=== PATIENT | female | born 1995 | race Caucasian/White ===

== ENCOUNTER 2017-01-10 20:21 | Outpatient (CLI) | payer MEDICAID ==
[2017-01-10 21:13] LABS: APPEARANCE,URINE SLIGHTLY-CLOUDY; BILIRUBIN,URINE NEGATIVE (NEGATIVE); GLUCOSE, URINE NEGATIVE (NEGATIVE); KETONES,URINE NEGATIVE (NEGATIVE); LEUKOCYTE ESTERASE,URINE SMALL (NEGATIVE); NITRITE,URINE NEGATIVE (NEGATIVE); PROTEIN,URINE NEGATIVE (NEGATIVE); URINE SPECIFIC GRAVITY 1.019
[2017-01-10 21:39] LABS: URINE BARBITURATES SCREEN NEGATIVE; URINE METHADONE SCREEN NEGATIVE; URINE PHENCYCLIDINE SCREEN NEGATIVE
[2017-01-10 21:49] LABS: URINE OPIATES LOW NEGATIVE
== END 2017-01-10 21:33 | disposition home or self-care (01) ==
LOC: LC 20:21
PROVIDERS: ATTEND Obstetrics & Gynecology
PROC: 4A1HXCZ Monitoring of Products of Conception, Cardiac Rate, External Approach (ICD-10-PCS; principal; 2017-01-10)
DX: O47.02 False labor before 37 completed weeks of gestation, second trimester (principal); O99.282 Endocrine, nutritional and metabolic diseases complicating pregnancy, second trimester; E86.0 Dehydration; Z3A.27 27 weeks gestation of pregnancy
CPT/HCPCS: 80307; 81001

== ENCOUNTER 2017-02-25 10:34 | Observation (INO) | payer MEDICAID ==
[2017-02-25 11:22] LABS: ABSOLUTE EOSINOPHILS # (AUTO) 0.1 10^3/uL (0.0-0.6); ABSOLUTE LYMPHOCYTES (AUTO) 1.8 10^3/uL (0.5-4.7); ABSOLUTE MONOCYTES (AUTO) 0.5 10^3/uL (0.1-1.4); ABSOLUTE NEUT (AUTO) 5.9 10^3/uL (1.7-8.2); BASOPHILS % (AUTO) 0.3 % (0-2); EOSINOPHILS % (AUTO) 0.8 % (0-6); HEMATOCRIT 36.4 % (36.0-47.0); HEMOGLOBIN 12.6 g/dL (12.0-15.5); HGB HCT DIFFERENCE 1.4; LYMPHOCYTES % (AUTO) 21.9 % (13-45); MEAN CORPUSCULAR HGB CONC 34.6 g/dL (32.0-36.0); MEAN CORPUSCULAR VOLUME 90 fl (80-97); MONOCYTES % (AUTO) 5.5 % (3-13); RED BLOOD COUNT 4.06 10^6/uL (3.72-5.28); RED CELL DISTRIBUTION WIDTH 12.7 % (11.5-14.0); SEGMENTED NEUTROPHILS % (AUTO) 71.5 % (42-78); WHITE BLOOD COUNT 8.3 10^3/uL (4.0-10.5)
--- NOTE | 2017-02-25 11:35 | Non Stress Test Report ---
Non Stress Test Datetime Report Generated by CPN: 02/25/2017 11:35 DEMOGRAPHIC EGA NST: 34.1 INDICATION Indication for Study: Ordered by Provider MONITORING Monitor Explained: Monitor Explained; Test Explained; Patient Verbalized Understanding Time on Monitor: 02/25/2017 11:00 Time off Monitor: 02/25/2017 11:33 NST Duration: 33 NST INTERVENTIONS NST Interventions: PO Hydration; Reposition Patient Physician Notified NST: A. Emmel, CNM BABY A: [id number] BABY A Movement : Present Contraction Frequency : none FHR Baseline : 140 Accelerations : 15X15 Decelerations : None Variability : Moderate 6-25bpm NST Review: Meets Criteria for Reactive NST NST Review and Verified By : Christianne Byrne RN NST Results: Reactive NST REPORT Report Trigger: Send Report
[2017-02-25 11:47] LABS: ALANINE AMINOTRANSFERASE 30 U/L (5-35); ALBUMIN 2.8 g/dL (3.7-5.6); ALKALINE PHOSPHATASE 126 U/L (50-135); ANION GAP 7 (5-19); ASPARTATE AMINO TRANSFERASE 15 U/L (5-30); BILIRUBIN,DIRECT 0.2 mg/dL (0.0-0.4); BILIRUBIN,TOTAL 0.5 mg/dL (0.2-1.3); BLOOD UREA NITROGEN 10 mg/dL (7-20); CALCIUM 9.1 mg/dL (8.4-10.2); CARBON DIOXIDE 21 mmol/L (22-30); CHLORIDE 110 mmol/L (98-107); CREATININE RESULT 0.79 mg/dL (0.52-1.25); GLUCOSE 74 mg/dL (75-110); LDH 435 U/L (340-670); POTASSIUM 4.2 mmol/L (3.6-5.0); SODIUM 137.7 mmol/L (137-145); TOTAL PROTEIN 5.2 g/dL (6.3-8.2); URIC ACID 6.2 mg/dL (2.5-6.2)
[2017-02-25 12:24] LABS: APPEARANCE,URINE SLIGHTLY-CLOUDY; BILIRUBIN,URINE NEGATIVE (NEGATIVE); GLUCOSE, URINE NEGATIVE (NEGATIVE); KETONES,URINE NEGATIVE (NEGATIVE); LEUKOCYTE ESTERASE,URINE SMALL (NEGATIVE); NITRITE,URINE NEGATIVE (NEGATIVE); PROTEIN,URINE >=500 mg/dL (NEGATIVE); URINE SPECIFIC GRAVITY 1.014; UROBILINOGEN,URINE NEGATIVE mg/dL (<2.0)
[2017-02-25 12:36] LABS: URINE BARBITURATES SCREEN NEGATIVE; URINE METHADONE SCREEN NEGATIVE; URINE OPIATES LOW NEGATIVE; URINE PHENCYCLIDINE SCREEN NEGATIVE
[2017-02-25 12:37] LABS: URINE CREATININE 163.3 mg/dL (16-327)
[2017-02-25 12:46] LABS: URINE PROTEIN 534.5 mg/dL (<12)
[2017-02-25] MEDS ORDERED: ACETAMINOPHEN 325 MG TABLET PO PRN (13:37)
[2017-02-25] MEDS ORDERED: FAMOTIDINE 20 MG TABLET PO PRN (20:58)
[2017-02-25] MEDS: ZOLPIDEM TARTRATE 5 MG TABLET PO PRN (22:50)
--- NOTE | 2017-02-26 06:32 | Admission Physical ---
Datetime Report Generated by CPN: 02/26/2017 06:31 CURRENT ADMISSION Chief Complaint: Other Chief Complaint Other: elevated blood pressure in the office. Admit Impression- Other: evaluate for preeclampsia Admit Plan: Admit to Unit; Observation/Evaluation ALLERGIES Medication Allergies: No Medication Allergies: No Known Allergies (01/10/2017) OBSTETRICAL HISTORY EDC: 04/07/2017 00:00 : 1 Para: 0 Term: 0 : 0 SAB: 0 IAB: 0 Ectopic: 0 Livin Cesareans: 0 VBACs: 0 Multiple Births: 0 Gestational Diabetes: No Rh Sensitization: No Incompetent Cervix: No ZEENAT: No Infertility: No ART Treatment: No Uterine Anomaly: No IUGR: No Hx Previous C/S: No Macrosomia: No Hx Loss/Stillborn: No PIH: No Hx : No Placenta Previa/Abruption: No Depression/PP Depression: No PTL/PROM: No Post Hemorrhage: No Current Procedures: Ultrasound SEE RECORDS Alcohol: No Marijuana : No Cocaine: No Other Illicit Drugs: No Cigarettes: Never Smoker. 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 Surgery: No Heart Disease: No Hosp/Surgery: No Autoimmune Disorder: No Anesthetic Complications: No Kidney Disease: No Abnormal Pap Smear: No Neuro/Epilepsy: No Psychiatric Disorders: No Other Medical Diseases: No Hepatitis/Liver Disease: No Significant Family History: No Varicosities/Phlebitis: No Trauma/Violence : No Thyroid Dysfunction: No PHYSICAL EXAM General: Normal HEENT: Normal Neurologic: Normal Thyroid: Normal Heart: Normal Lungs: Normal Breast: Deferred Back: Normal Abdomen: Normal Genitourinary Exam: Deferred Extremities: Normal DTRs: Normal Pelvic Type: Adequate Vital Signs: Reviewed FETUS A Admit Comment: Will admit for a 24 hour urine protein and serial blood pressures. PLANS FOR LABOR AND DELIVERY Labor and Delivery: None Pain Management: Epidural Feeding Preference: Breast Benefit of Breast Feed Discussed: Yes Circumcision: Yes INFORMED CONSENT Signature: with User ID: [email or web address]
--- NOTE | 2017-02-26 06:35 | Admission Physical ---
Datetime Report Generated by CPN: 02/26/2017 06:34 CURRENT ADMISSION Chief Complaint: Other Chief Complaint Other: elevated blood pressure in the office. Admit Impression- Other: evaluate for preeclampsia Admit Plan: Admit to Unit; Observation/Evaluation ALLERGIES Medication Allergies: No Medication Allergies: No Known Allergies (01/10/2017) OBSTETRICAL HISTORY EDC: 04/07/2017 00:00 : 1 Para: 0 Term: 0 : 0 SAB: 0 IAB: 0 Ectopic: 0 Livin Cesareans: 0 VBACs: 0 Multiple Births: 0 Gestational Diabetes: No Rh Sensitization: No Incompetent Cervix: No ZEENAT: No Infertility: No ART Treatment: No Uterine Anomaly: No IUGR: No Hx Previous C/S: No Macrosomia: No Hx Loss/Stillborn: No PIH: No Hx : No Placenta Previa/Abruption: No Depression/PP Depression: No PTL/PROM: No Post Hemorrhage: No Current Procedures: Ultrasound SEE RECORDS Alcohol: No Marijuana : No Cocaine: No Other Illicit Drugs: No Cigarettes: Never Smoker. [id number] MEDICAL HISTORY Diabetes: No Blood Transfusion: No Pulmonary Disease (Asthma, TB): No Breast Disease: No Hypertension: No Case Picker Surgery: No Heart Disease: No Hosp/Surgery: No Autoimmune Disorder: No Anesthetic Complications: No Kidney Disease: No Abnormal Pap Smear: No Neuro/Epilepsy: No Psychiatric Disorders: No Other Medical Diseases: No Hepatitis/Liver Disease: No Significant Family History: No Varicosities/Phlebitis: No Trauma/Violence : No Thyroid Dysfunction: No PHYSICAL EXAM General: Normal HEENT: Normal Neurologic: Normal Thyroid: Normal Heart: Normal Lungs: Normal Breast: Deferred Back: Normal Abdomen: Normal Genitourinary Exam: Deferred Extremities: Normal DTRs: Normal Pelvic Type: Adequate Vital Signs: Reviewed FETUS A EGA: 34.1 Admit Comment: Will admit for a 24 hour urine protein and serial blood pressures. PLANS FOR LABOR AND DELIVERY Labor and Delivery: None Pain Management: Epidural Feeding Preference: Breast Benefit of Breast Feed Discussed: Yes Circumcision: Yes INFORMED CONSENT Signature: with User ID: [email or web address]
--- NOTE | 2017-02-26 06:35 | Admission Physical ---
Datetime Report Generated by CPN: 02/26/2017 06:35 CURRENT ADMISSION Chief Complaint: Other Chief Complaint Other: elevated blood pressure in the office. Admit Impression- Other: evaluate for preeclampsia Admit Plan: Admit to Unit; Observation/Evaluation ALLERGIES Medication Allergies: No Medication Allergies: No Known Allergies (01/10/2017) OBSTETRICAL HISTORY EDC: 04/07/2017 00:00 : 1 Para: 0 Term: 0 : 0 SAB: 0 IAB: 0 Ectopic: 0 Livin Cesareans: 0 VBACs: 0 Multiple Births: 0 Gestational Diabetes: No Rh Sensitization: No Incompetent Cervix: No ZEENAT: No Infertility: No ART Treatment: No Uterine Anomaly: No IUGR: No Hx Previous C/S: No Macrosomia: No Hx Loss/Stillborn: No PIH: No Hx : No Placenta Previa/Abruption: No Depression/PP Depression: No PTL/PROM: No Post Hemorrhage: No Current Procedures: Ultrasound SEE RECORDS Alcohol: No Marijuana : No Cocaine: No Other Illicit Drugs: No Cigarettes: Never Smoker. 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 Heart Disease: No Hosp/Surgery: No Autoimmune Disorder: No Anesthetic Complications: No Kidney Disease: No Abnormal Pap Smear: No Neuro/Epilepsy: No Psychiatric Disorders: No Other Medical Diseases: No Hepatitis/Liver Disease: No Significant Family History: No Varicosities/Phlebitis: No Trauma/Violence : No Thyroid Dysfunction: No PHYSICAL EXAM General: Normal HEENT: Normal Neurologic: Normal Thyroid: Normal Heart: Normal Lungs: Normal Breast: Deferred Back: Normal Abdomen: Normal Genitourinary Exam: Deferred Extremities: Normal DTRs: Normal Pelvic Type: Adequate Vital Signs: Reviewed FETUS A Admit Comment: Will admit for a 24 hour urine protein and serial blood pressures. PLANS FOR LABOR AND DELIVERY Labor and Delivery: None Pain Management: Epidural Feeding Preference: Breast Benefit of Breast Feed Discussed: Yes Circumcision: Yes INFORMED CONSENT Signature: with User ID: [email or web address]
--- NOTE | 2017-02-26 06:37 | Admission Physical ---
Datetime Report Generated by CPN: 02/26/2017 06:37 CURRENT ADMISSION Chief Complaint: Other Chief Complaint Other: elevated blood pressure in the office. Admit Impression- Other: evaluate for preeclampsia Admit Plan: Admit to Unit; Observation/Evaluation ALLERGIES Medication Allergies: No Medication Allergies: No Known Allergies (01/10/2017) OBSTETRICAL HISTORY EDC: 04/07/2017 00:00 : 1 Para: 0 Term: 0 : 0 SAB: 0 IAB: 0 Ectopic: 0 Livin Cesareans: 0 VBACs: 0 Multiple Births: 0 Gestational Diabetes: No Rh Sensitization: No Incompetent Cervix: No ZEENAT: No Infertility: No ART Treatment: No Uterine Anomaly: No IUGR: No Hx Previous C/S: No Macrosomia: No Hx Loss/Stillborn: No PIH: No Hx : No Placenta Previa/Abruption: No Depression/PP Depression: No PTL/PROM: No Post Hemorrhage: No Current Procedures: Ultrasound SEE RECORDS Alcohol: No Marijuana : No Cocaine: No Other Illicit Drugs: No Cigarettes: Never Smoker. 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 Heart Disease: No Hosp/Surgery: No Autoimmune Disorder: No Anesthetic Complications: No Kidney Disease: No Abnormal Pap Smear: No Neuro/Epilepsy: No Psychiatric Disorders: No Other Medical Diseases: No Hepatitis/Liver Disease: No Significant Family History: No Varicosities/Phlebitis: No Trauma/Violence : No Thyroid Dysfunction: No PHYSICAL EXAM General: Normal HEENT: Normal Neurologic: Normal Thyroid: Normal Heart: Normal Lungs: Normal Breast: Deferred Back: Normal Abdomen: Normal Genitourinary Exam: Deferred Extremities: Normal DTRs: Normal Pelvic Type: Adequate Vital Signs: Reviewed FETUS A EGA: 34.1 Admit Comment: Will admit for a 24 hour urine protein and serial blood pressures. PLANS FOR LABOR AND DELIVERY Labor and Delivery: None Pain Management: Epidural Feeding Preference: Breast Benefit of Breast Feed Discussed: Yes Circumcision: Yes INFORMED CONSENT Signature: with User ID: [email or web address]
--- NOTE | 2017-02-26 08:05 | PDOC PROGRESS REPORT ---
Subjective Subjective:: Pt reports no ctx's, no vb or lof No s/s of Pre-E Physical Exam - Physical Exam Vital Signs: Temp Pulse Resp BP Pulse Ox 97.7 F 76 18 148/91 H 100 02/26/17 04:38 02/26/17 04:38 02/26/17 04:38 02/26/17 04:38 02/26/17 04:38 Intake & Output 02/25/17 02/26/17 02/27/17 06:59 06:59 06:59 Intake Total 1800 Output Total 1150 Balance 650 Weight 127.55 kg General appearance: PRESENT: no acute distress, cooperative, well-developed - DTR's 2/4 b/l No clonus Result Laboratory Results: 02/25/17 11:08 02/25/17 11:08 02/25/17 02/25/17 02/25/17 10:40 11:08 11:08 WBC 8.3 RBC 4.06 Hgb 12.6 Hct 36.4 MCV 90 MCH 31.0 MCHC 34.6 RDW 12.7 Plt Count 189 Seg Neutrophils % 71.5 Lymphocytes % 21.9 Monocytes % 5.5 Eosinophils % 0.8 Basophils % 0.3 Absolute Neutrophils 5.9 Absolute Lymphocytes 1.8 Absolute Monocytes 0.5 Absolute Eosinophils 0.1 Absolute Basophils 0.0 Sodium 137.7 Potassium 4.2 Chloride 110 H Carbon Dioxide 21 L Anion Gap 7 BUN 10 Creatinine 0.79 Est GFR ( Amer) > 60 Est GFR (Non-Af Amer) > 60 Glucose 74 L Uric Acid 6.2 Calcium 9.1 Total Bilirubin 0.5 AST 15 ALT 30 Alkaline Phosphatase 126 Total Protein 5.2 L Albumin 2.8 L Urine Color YELLOW Urine Appearance SLIGHTLY-CLOUDY Urine pH 7.0 Ur Specific Joseph 1.014 Urine Protein >=500 H Urine Glucose (UA) NEGATIVE Urine Ketones NEGATIVE Urine Blood NEGATIVE Urine Nitrite NEGATIVE Ur Leukocyte Esterase SMALL H Urine WBC (Auto) 9 Urine RBC (Auto) 1 Assessment & Plan - Diagnosis (1) Mild pre-eclampsia Qualifiers: Trimester: third trimester Qualified Code(s): O14.03 - Mild to moderate pre-eclampsia, third trimester Is this a current diagnosis for this admission?: Yes - Time Time Spent with patient: Less than 15 minutes Critical Time spent with patient: Less than 15 minutes Anticipated discharge: Home Within: within 24 hours - Will await 24hr urine results If Pre-E, will start 2x week testing and del if becomes severe or at 37 weeks
[2017-02-26 12:01] LABS: URINE PROTEIN 409.6 mg/dL (<12)
[2017-02-26] MEDS: ZOLPIDEM TARTRATE 5 MG TABLET PO PRN (22:24)
[2017-02-26 23:37] VITALS: BP 141/78
[2017-02-28 09:07] LABS: ABSOLUTE EOSINOPHILS # (AUTO) 0.1 10^3/uL (0.0-0.6); ABSOLUTE LYMPHOCYTES (AUTO) 2.4 10^3/uL (0.5-4.7); ABSOLUTE MONOCYTES (AUTO) 0.6 10^3/uL (0.1-1.4); ABSOLUTE NEUT (AUTO) 5.3 10^3/uL (1.7-8.2); BASOPHILS % (AUTO) 0.3 % (0-2); HEMATOCRIT 37.2 % (36.0-47.0); HEMOGLOBIN 12.4 g/dL (12.0-15.5); LYMPHOCYTES % (AUTO) 28.8 % (13-45); MEAN CORPUSCULAR HEMOGLOBIN 30.4 pg (27.0-33.4); MEAN CORPUSCULAR HGB CONC 33.4 g/dL (32.0-36.0); MEAN CORPUSCULAR VOLUME 91 fl (80-97); MONOCYTES % (AUTO) 7.3 % (3-13); SEGMENTED NEUTROPHILS % (AUTO) 62.6 % (42-78); WHITE BLOOD COUNT 8.5 10^3/uL (4.0-10.5)
[2017-02-28 10:35] LABS: ALANINE AMINOTRANSFERASE 24 U/L (5-35); ALBUMIN 2.5 g/dL (3.7-5.6); ALKALINE PHOSPHATASE 122 U/L (50-135); ANION GAP 7 (5-19); ASPARTATE AMINO TRANSFERASE 14 U/L (5-30); BILIRUBIN,TOTAL 0.4 mg/dL (0.2-1.3); BLOOD UREA NITROGEN 9 mg/dL (7-20); CALCIUM 8.8 mg/dL (8.4-10.2); CARBON DIOXIDE 21 mmol/L (22-30); CHLORIDE 111 mmol/L (98-107); CREATININE RESULT 0.72 mg/dL (0.52-1.25); GLUCOSE 67 mg/dL (75-110); SODIUM 138.5 mmol/L (137-145)
[2017-02-28 10:36] LABS: BILIRUBIN,DIRECT 0.2 mg/dL (0.0-0.4); LDH 430 U/L (340-670); TOTAL PROTEIN 4.9 g/dL (6.3-8.2)
== END 2017-02-26 18:05 | disposition home or self-care (01) ==
LOC: LC 10:34 → LR 13:16 → 2S 17:21
PROVIDERS: ADMIT Obstetrics & Gynecology; ATTEND Obstetrics & Gynecology
PROC: 4A0HXCZ Measurement of Products of Conception, Cardiac Rate, External Approach (ICD-10-PCS; principal; 2017-02-25)
DX: O14.03 Mild to moderate pre-eclampsia, third trimester (principal); Z3A.34 34 weeks gestation of pregnancy
CPT/HCPCS: 59025; 36415; 83615; 84156; 84550; 82570; 85025; 80053; 81001; 80307; J3490 ×4; G0378; G0379

== ENCOUNTER 2017-03-01 10:12 | Inpatient (IN) | payer MEDICAID ==
[2017-03-01 11:00] LABS: APPEARANCE,URINE SLIGHTLY-CLOUDY; BILIRUBIN,URINE NEGATIVE (NEGATIVE); GLUCOSE, URINE NEGATIVE (NEGATIVE); KETONES,URINE NEGATIVE (NEGATIVE); LEUKOCYTE ESTERASE,URINE TRACE (NEGATIVE); NITRITE,URINE NEGATIVE (NEGATIVE); PROTEIN,URINE >=500 mg/dL (NEGATIVE); URINE SPECIFIC GRAVITY 1.007; UROBILINOGEN,URINE NEGATIVE mg/dL (<2.0)
[2017-03-01 11:08] LABS: ABSOLUTE LYMPHOCYTES (AUTO) 2.1 10^3/uL (0.5-4.7); ABSOLUTE MONOCYTES (AUTO) 0.4 10^3/uL (0.1-1.4); ABSOLUTE NEUT (AUTO) 7.2 10^3/uL (1.7-8.2); BASOPHILS % (AUTO) 0.3 % (0-2); EOSINOPHILS % (AUTO) 0.4 % (0-6); HEMATOCRIT 39.2 % (36.0-47.0); HEMOGLOBIN 13.4 g/dL (12.0-15.5); LYMPHOCYTES % (AUTO) 21.4 % (13-45); MEAN CORPUSCULAR HEMOGLOBIN 30.5 pg (27.0-33.4); MEAN CORPUSCULAR HGB CONC 34.3 g/dL (32.0-36.0); MEAN CORPUSCULAR VOLUME 89 fl (80-97); MONOCYTES % (AUTO) 3.7 % (3-13); RED CELL DISTRIBUTION WIDTH 12.8 % (11.5-14.0); SEGMENTED NEUTROPHILS % (AUTO) 74.2 % (42-78); WHITE BLOOD COUNT 9.8 10^3/uL (4.0-10.5)
[2017-03-01 11:17] LABS: URINE CREATININE 75.8 mg/dL (16-327)
[2017-03-01 11:21] LABS: URINE BARBITURATES SCREEN NEGATIVE; URINE METHADONE SCREEN NEGATIVE; URINE OPIATES LOW NEGATIVE; URINE PHENCYCLIDINE SCREEN NEGATIVE
[2017-03-01 11:28] LABS: ALANINE AMINOTRANSFERASE 24 U/L (5-35); ALBUMIN 2.9 g/dL (3.7-5.6); ALKALINE PHOSPHATASE 150 U/L (50-135); ANION GAP 8 (5-19); ASPARTATE AMINO TRANSFERASE 16 U/L (5-30); BILIRUBIN,DIRECT 0.3 mg/dL (0.0-0.4); BILIRUBIN,TOTAL 0.5 mg/dL (0.2-1.3); BLOOD UREA NITROGEN 11 mg/dL (7-20); CALCIUM 8.9 mg/dL (8.4-10.2); CARBON DIOXIDE 21 mmol/L (22-30); CHLORIDE 108 mmol/L (98-107); CREATININE RESULT 0.84 mg/dL (0.52-1.25); GLUCOSE 103 mg/dL (75-110); LDH 505 U/L (340-670); POTASSIUM 4.2 mmol/L (3.6-5.0); SODIUM 137.4 mmol/L (137-145); TOTAL PROTEIN 5.6 g/dL (6.3-8.2); URIC ACID 6.4 mg/dL (2.5-6.2)
[2017-03-01 11:51] LABS: URINE PROTEIN 724.6 mg/dL (<12)
[2017-03-01] MEDS ORDERED: MAG HYDROX/AL HYDROX/SIMETH SUSP 30 ML UDCUP ONE (14:57)
[2017-03-01] MEDS ORDERED: ACETAMINOPHEN 325 MG TABLET PO PRN (16:23)
[2017-03-01] MEDS: ZOLPIDEM TARTRATE 5 MG TABLET PO PRN (21:44)
--- NOTE | 2017-03-02 11:27 | PDOC PROGRESS REPORT ---
Subjective Progress Note for:: 03/02/17 Subjective:: doing well. no SOLOMON. No PreE ROS. concerned about BP Physical Exam - Physical Exam Vital Signs: Temp Pulse Resp BP Pulse Ox 98.3 F 87 18 149/87 H 100 03/02/17 07:38 03/02/17 07:38 03/02/17 07:38 03/02/17 07:38 03/02/17 07:38 Intake & Output 03/01/17 03/02/17 03/03/17 06:59 06:59 06:59 Intake Total 800 Balance 800 Weight 128.5 kg General appearance: PRESENT: no acute distress, cooperative Head exam: PRESENT: atraumatic - no periorbital swelling present GI/Abdominal exam: PRESENT: soft Extremities exam: PRESENT: full ROM, +1 edema Result Laboratory Results: 03/01/17 10:50 03/01/17 10:50 03/01/17 10:50 Sodium 137.4 Potassium 4.2 Chloride 108 H Carbon Dioxide 21 L Anion Gap 8 BUN 11 Creatinine 0.84 Est GFR ( Amer) > 60 Est GFR (Non-Af Amer) > 60 Glucose 103 Uric Acid 6.4 H Calcium 8.9 Total Bilirubin 0.5 AST 16 ALT 24 Alkaline Phosphatase 150 H Total Protein 5.6 L Albumin 2.9 L Assessment & Plan - Diagnosis (1) Mild pre-eclampsia Qualifiers: Is this a current diagnosis for this admission?: Yes - Time Time Spent with patient: 15-24 minutes - Inpatient Certification Based on my medical assessment, after consideration of the patient's comorbidities, presenting symptoms, or acuity I expect that the services needed warrant INPATIENT care.: Yes I certify that my determination is in accordance with my understanding of Medicare's requirements for reasonable and necessary INPATIENT services [42 CFR 412.3e].: Yes Medical Necessity: Failure to Improve With Outpatient Therapy, Need Close Monitoring Due to Risk of Patient Decompensation, Risk of Complication if Not Cared For in Hospital - eclampsia - Plan Summary Plan Summary: d/w pt and pt's mother that concern for severe preE development. Will continue to monitor inpatient until more reassured that Severe is unlikely or until 37 wks. Counseled on risks of delivery before 37 wks including prolonged NICU stay , poor FLM with risks of demise. Counseled that if patient does display severe PreE however, that delivery would be initiated for treatment. Voiced understanding. MARGARETTE Burrell present for discussion.
[2017-03-02] MEDS ORDERED: FAMOTIDINE 20 MG TABLET PO ONE (20:15)
[2017-03-02] MEDS: ZOLPIDEM TARTRATE 5 MG TABLET PO PRN (22:25)
[2017-03-03 07:00] LABS: HEMATOCRIT 36.7 % (36.0-47.0); HEMOGLOBIN 12.8 g/dL (12.0-15.5); HGB HCT DIFFERENCE 1.7; MEAN CORPUSCULAR VOLUME 89 fl (80-97); RED BLOOD COUNT 4.14 10^6/uL (3.72-5.28); RED CELL DISTRIBUTION WIDTH 12.7 % (11.5-14.0); WHITE BLOOD COUNT 9.7 10^3/uL (4.0-10.5)
[2017-03-03 07:18] LABS: ALANINE AMINOTRANSFERASE 31 U/L (5-35); ALBUMIN 2.4 g/dL (3.7-5.6); ALKALINE PHOSPHATASE 114 U/L (50-135); ANION GAP 6 (5-19); ASPARTATE AMINO TRANSFERASE 14 U/L (5-30); BILIRUBIN,DIRECT 0.2 mg/dL (0.0-0.4); BILIRUBIN,TOTAL 0.2 mg/dL (0.2-1.3); BLOOD UREA NITROGEN 12 mg/dL (7-20); CALCIUM 9.3 mg/dL (8.4-10.2); CARBON DIOXIDE 22 mmol/L (22-30); CHLORIDE 110 mmol/L (98-107); CREATININE RESULT 0.82 mg/dL (0.52-1.25); GLUCOSE 67 mg/dL (75-110); LDH 461 U/L (340-670); POTASSIUM 4.3 mmol/L (3.6-5.0); SODIUM 137.5 mmol/L (137-145); TOTAL PROTEIN 4.7 g/dL (6.3-8.2)
[2017-03-03] MEDS: FAMOTIDINE 20 MG TABLET PO SCH (09:17)
--- NOTE | 2017-03-03 10:12 | PDOC PROGRESS REPORT ---
Subjective-OB Subjective: Post Delivery Day: 21 year old. She denies headache today. Her face appears swollen. She expresses that she is glad we are watching her in the hospital. Physical Exam (OB) Vital Signs: Temp Pulse Resp BP Pulse Ox 97.7 F 83 18 151/94 H 100 03/03/17 07:45 03/03/17 08:11 03/03/17 08:11 03/03/17 08:11 03/03/17 08:11 Intake & Output 03/02/17 03/03/17 03/04/17 06:59 06:59 06:59 Intake Total 1600 Balance 1600 Weight 128.5 kg - General General Appearance: Appears well In distress: None - PIH/Pre-Eclampsia Headache: Absent Epigastric Pain: No Visual Changes: No - Abdomen Hernia Present: No Objective-Diagnostic Laboratory: 03/03/17 06:17 03/03/17 06:17 03/03/17 03/03/17 06:17 06:17 WBC 9.7 RBC 4.14 Hgb 12.8 Hct 36.7 MCV 89 MCH 31.0 MCHC 35.0 RDW 12.7 Plt Count 188 Sodium 137.5 Potassium 4.3 Chloride 110 H Carbon Dioxide 22 Anion Gap 6 BUN 12 Creatinine 0.82 Est GFR ( Amer) > 60 Est GFR (Non-Af Amer) > 60 Glucose 67 L Uric Acid 6.0 Calcium 9.3 Total Bilirubin 0.2 AST 14 ALT 31 Alkaline Phosphatase 114 Total Protein 4.7 L Albumin 2.4 L Assessment and Plan(PN) - Assessment and Plan (1) Mild pre-eclampsia Qualifiers: Trimester: third trimester Is this a current diagnosis for this admission?: YesPlan: Watch for severe features. Twice a week nst. DVT prevention. Plan:: Plan to continue observation for severe features. Plan to deliver with severe features. Otherwise deliver at 37 wks. - Time Spent with Patient Time with patient: 15-25 minutes
[2017-03-03] MEDS ORDERED: MAGNESIUM SULFATE 4 GM/100 ML RTUPB IV ONE ×2 (21:17→21:30)
[2017-03-03] MEDS ORDERED: DINOPROSTONE 10 MG VAGINAL INSERT.SR ONE (21:17)
[2017-03-03] MEDS ORDERED: OXYTOCIN/NORMAL SALINE 1,000 ML IV PRN (21:20)
[2017-03-03] MEDS ORDERED: DINOPROSTONE 10 MG VAGINAL INSERT.SR PV PRN (21:20)
[2017-03-03] MEDS ORDERED: RINGERS SOLUTION,LACTATED 300 ML IV ONE (21:20)
[2017-03-03 21:58] LABS: ABSOLUTE EOSINOPHILS # (AUTO) 0.1 10^3/uL (0.0-0.6); ABSOLUTE LYMPHOCYTES (AUTO) 2.6 10^3/uL (0.5-4.7); ABSOLUTE MONOCYTES (AUTO) 0.8 10^3/uL (0.1-1.4); ABSOLUTE NEUT (AUTO) 6.8 10^3/uL (1.7-8.2); BASOPHILS % (AUTO) 0.5 % (0-2); EOSINOPHILS % (AUTO) 0.7 % (0-6); HEMATOCRIT 37.7 % (36.0-47.0); HEMOGLOBIN 13.1 g/dL (12.0-15.5); HGB HCT DIFFERENCE 1.6; LYMPHOCYTES % (AUTO) 25.1 % (13-45); MEAN CORPUSCULAR HEMOGLOBIN 30.7 pg (27.0-33.4); MEAN CORPUSCULAR HGB CONC 34.8 g/dL (32.0-36.0); MEAN CORPUSCULAR VOLUME 88 fl (80-97); MONOCYTES % (AUTO) 7.9 % (3-13); RED BLOOD COUNT 4.27 10^6/uL (3.72-5.28); RED CELL DISTRIBUTION WIDTH 12.8 % (11.5-14.0); SEGMENTED NEUTROPHILS % (AUTO) 65.8 % (42-78); WHITE BLOOD COUNT 10.3 10^3/uL (4.0-10.5)
[2017-03-03 22:15] LABS: ALANINE AMINOTRANSFERASE 28 U/L (5-35); ALBUMIN 2.6 g/dL (3.7-5.6); ALKALINE PHOSPHATASE 126 U/L (50-135); ANION GAP 7 (5-19); ASPARTATE AMINO TRANSFERASE 16 U/L (5-30); BILIRUBIN,DIRECT 0.2 mg/dL (0.0-0.4); BILIRUBIN,TOTAL 0.3 mg/dL (0.2-1.3); BLOOD UREA NITROGEN 12 mg/dL (7-20); CALCIUM 9.1 mg/dL (8.4-10.2); CARBON DIOXIDE 21 mmol/L (22-30); CHLORIDE 111 mmol/L (98-107); CREATININE RESULT 0.83 mg/dL (0.52-1.25); GLUCOSE 85 mg/dL (75-110); LDH 486 U/L (340-670); POTASSIUM 4.1 mmol/L (3.6-5.0); SODIUM 139.2 mmol/L (137-145); TOTAL PROTEIN 4.8 g/dL (6.3-8.2); URIC ACID 6.1 mg/dL (2.5-6.2)
[2017-03-03] MEDS: RINGERS SOLUTION,LACTATED 1,000 ML IV PRN (22:26)
[2017-03-03] MEDS: MAGNESIUM SULFATE 500 ML IV PRN (22:28)
[2017-03-04] MEDS ORDERED: ZOLPIDEM TARTRATE 5 MG TABLET ONE
[2017-03-04] MEDS: ZOLPIDEM TARTRATE 5 MG TABLET PO PRN (00:01)
[2017-03-04] MEDS: FAMOTIDINE 20 MG TABLET PO SCH ×3 (00:47→21:21)
[2017-03-04] MEDS ORDERED: HYDRALAZINE HCL INJ/PF 20 MG/1 ML SDV IV ONE (01:32)
[2017-03-04] MEDS ORDERED: HYDRALAZINE HCL INJ/PF 20 MG/1 ML SDV ONE (01:32)
[2017-03-04] MEDS ORDERED: ONDANSETRON HCL INJ/PF 4 MG/2 ML SDV IV ONE (02:39)
[2017-03-04] MEDS ORDERED: ONDANSETRON HCL INJ/PF 4 MG/2 ML SDV ONE (02:41)
[2017-03-04] MEDS ORDERED: RINGERS SOLUTION,LACTATED 1,000 ML IV PRN (03:05)
[2017-03-04] MEDS ORDERED: OXYTOCIN/NORMAL SALINE 1,000 ML IV PRN (03:06)
[2017-03-04] MEDS ORDERED: PENICILLIN G POTASSIUM 5,000,000 UNIT in DEXTROSE 5%-WATER 100 ML IV ONE (03:30)
[2017-03-04] MEDS ORDERED: PENICILLIN G-K 5 MILLION UNIT VIAL ONE (04:25)
[2017-03-04] MEDS ORDERED: OXYTOCIN/NORMAL SALINE 0 UNIT/0 ML RTUINJ ONE (04:25)
[2017-03-04] MEDS ORDERED: OXYTOCIN/NORMAL SALINE 20 UNIT/1,000 ML RTUINJ ONE (05:57)
[2017-03-04] MEDS ORDERED: MISOPROSTOL 0.2 MG TABLET ONE (05:57)
[2017-03-04] MEDS ORDERED: LIDOCAINE 1% INJ-PF (10 MG/ML) 30 ML SDV ONE (05:57)
[2017-03-04] MEDS ORDERED: BUPIVACAINE HCL 0.25 % INJ/PF (2.5 MG/1 ML) 30 ML VIAL ONE (05:59)
[2017-03-04] MEDS ORDERED: FENTANYL/BUPIVACAINE/NS/PF 0 MCG/0 ML RTUINJ EPI ONE (05:59)
[2017-03-04] MEDS ORDERED: EPHEDRINE SULFATE INJ 50 MG/1 ML AMPULE ONE (05:59)
[2017-03-04] MEDS ORDERED: ZOLPIDEM TARTRATE 5 MG TABLET PO PRN (06:24)
[2017-03-04] MEDS ORDERED: GLYCERIN/WITCH HAZEL LEAF 1 EACH MED..PAD TP PRN (06:24)
[2017-03-04] MEDS ORDERED: ACETAMINOPHEN WITH CODEINE #3 TABLET PO PRN ×2 (06:24)
[2017-03-04] MEDS ORDERED: MEASLES,MUMPS&RUBELLA VACC/PF 0.5 ML VIAL SUBCUT PRN (06:24)
[2017-03-04] MEDS ORDERED: PROMETHAZINE HCL 25 MG TABLET PO PRN (06:24)
[2017-03-04] MEDS ORDERED: PSEUDOEPHEDRINE HCL 30 MG TABLET PO PRN (06:24)
[2017-03-04] MEDS ORDERED: NA PHOS,M-B/NA PHOS,DI-BA (ADULT) 133 ML ENEMA PR PRN (06:24)
[2017-03-04] MEDS ORDERED: BENZOCAINE/MENTHOL AEROSOL SPRAY 56 ML TOP PRN (06:24)
[2017-03-04] MEDS ORDERED: DIPHENHYDRAMINE HCL 25 MG CAPSULE PO PRN (06:24)
[2017-03-04] MEDS ORDERED: DIBUCAINE 1% OINTMENT 28 GM TP PRN (06:24)
[2017-03-04] MEDS ORDERED: MAGNESIUM HYDROXIDE SUSP 30 ML UDCUP PO PRN (06:24)
[2017-03-04] MEDS ORDERED: DIPH/PERTUSS(ACELL)/TETANUS VAC/PF 0.5 ML SYR (>=10YO) IM PRN (06:24)
[2017-03-04] MEDS ORDERED: ACETAMINOPHEN 650 MG SUPP.RECT PR PRN (06:24)
[2017-03-04] MEDS ORDERED: OXYTOCIN/NORMAL SALINE 20 UNIT/1,000 ML RTUINJ IV PRN (06:24)
[2017-03-04] MEDS ORDERED: PROMETHAZINE HCL 25 MG SUPP.RECT PR PRN (06:24)
[2017-03-04] MEDS ORDERED: PROMETHAZINE HCL INJ 25 MG/1 ML VIAL IV PRN (06:24)
[2017-03-04] MEDS ORDERED: PENICILLIN G-K 5 MILLION UNIT VIAL IV PRN (07:00)
[2017-03-04 07:09] LABS: HEMATOCRIT 39.3 % (36.0-47.0); HEMOGLOBIN 13.5 g/dL (12.0-15.5); HGB HCT DIFFERENCE 1.2; MEAN CORPUSCULAR HEMOGLOBIN 30.6 pg (27.0-33.4); MEAN CORPUSCULAR HGB CONC 34.3 g/dL (32.0-36.0); MEAN CORPUSCULAR VOLUME 89 fl (80-97); RED BLOOD COUNT 4.41 10^6/uL (3.72-5.28); RED CELL DISTRIBUTION WIDTH 12.7 % (11.5-14.0); WHITE BLOOD COUNT 16.6 10^3/uL (4.0-10.5)
[2017-03-04 07:13] LABS: ALANINE AMINOTRANSFERASE 23 U/L (5-35); ALBUMIN 2.7 g/dL (3.7-5.6); ALKALINE PHOSPHATASE 157 U/L (50-135); ANION GAP 6 (5-19); ASPARTATE AMINO TRANSFERASE 19 U/L (5-30); BILIRUBIN,DIRECT 0.3 mg/dL (0.0-0.4); BILIRUBIN,TOTAL 0.4 mg/dL (0.2-1.3); BLOOD UREA NITROGEN 12 mg/dL (7-20); CALCIUM 8.2 mg/dL (8.4-10.2); CARBON DIOXIDE 19 mmol/L (22-30); CHLORIDE 110 mmol/L (98-107); CREATININE RESULT 0.85 mg/dL (0.52-1.25); GLUCOSE 102 mg/dL (75-110); LDH 577 U/L (340-670); SODIUM 135.1 mmol/L (137-145); TOTAL PROTEIN 5.3 g/dL (6.3-8.2); URIC ACID 5.9 mg/dL (2.5-6.2)
[2017-03-04] MEDS ORDERED: PENICILLIN G POTASSIUM 2,500,000 UNIT in DEXTROSE 5%-WATER 50 ML IV SCH (07:30)
[2017-03-04] MEDS ORDERED: LABETALOL HCL 200 MG TABLET ONE (07:34)
--- NOTE | 2017-03-04 07:43 | Delivery Summary ---
Del Sum A-C Datetime Report Generated by CPN: 03/04/2017 07:43 DELIVERY PERSONNEL DELIVERY PERSONNEL: [id number] Delivery Doctor:: Megan Myers MD Labor and Delivery Nurse:: Martina Mckeon RNcustomer service correspondence clerk Nurse:: Krissy Peralta RN Nursery Nurse:: Debra Burrell RN Calendering Supervisor/COIN ROLLING MACHINE OPERATOR: Yoanna Martin, ST MATERNAL INFORMATION Delivery Anesthesia: None Medications After Delivery: Pitocin Bolus-Please Comment Meds After Delivery Comment: Pitocin 20 units/ 1000 ml NS bolus folowing placenta Estimated Blood Loss (ml): 250 Maternal Complications: Precipitous Labor (<3hrs); Other Other Maternal Complications: pre-E LABOR SUMMARY EDC: 04/07/2017 00:00 No. Babies in Womb: 1 Attempted: No Labor Anesthesia: None LABOR INFORMATION Reason for Induction: Pre-Eclampsia Onset of Labor: 03/04/2017 02:30 Complete Dilatation: 03/04/2017 06:02 Cervical Ripening Agents: Cervidil Oxytocin: Augmentation Group B Beta Strep: unknown Antibiotics # of Doses: 1 Antibiotics Time of Last Dose: 0440 Name of Antibiotic Given: PCN Steroids Given: None Reason Steroids Not Administered: Not Applicable MEMBRANES Membranes Rupture Method: Artificial Rupture of Membranes: 03/04/2017 05:55 Length of Rupture (hr): 0.17 Amniotic Fluid Color: Clear Amniotic Fluid Amount: Scant Amniotic Fluid Odor: Normal STAGES OF LABOR Stage 1 hr: 3 Stage 1 min: 32 Stage 2 hr: 0 Stage 2 min: 3 Stage 3 hr: 0 Stage 3 min: 3 Total Time in Labor hr: 3 Total Time in Labor min: 38 VAGINAL DELIVERY Episiotomy: None Laceration Extension: First Degree Laceration Type: Perineal Laceration Repair: Yes Laceration Repair Note: 3-0 chromic placed Sponge Count Correct: Yes; Vaginal Sweep Performed Sharps Count Correct: Yes CSECTION DELIVERY Primary Indication: N/A Secondary Indication: N/A CSection Incidence: N/A Labor: N/A Elective: N/A CSection Incision: N/A BABY A INFORMATION Infant Delivery Date/Time: 03/04/2017 06:05 Method of Delivery: Vaginal Born in Route : No : N/A Forceps: N/A Vacuum Extraction: N/A Shoulder Dystocia : No PRESENTATION/POSITION BABY A Presentation: Cephalic Cephalic Presentation: Vertex Vertex Position: Occipital Anterior Breech Presentation: N/A PLACENTA INFORMATION BABY A Placenta Delivery Time : 03/04/2017 06:08 Placenta Method of Delivery: Spontaneous Placenta Status: Delivered SCORES BABY A Heart Rate 1 min: >100 bpm Resp Effort 1 min: Slow, Irregular Reflex Irritability 1 min: Grimace Muscle Tone 1 min: Flaccid Color 1 min: Body [place], Extremities Blue Resuscitation Effort 1 min: Tactile Stimulation; Oxygen; PPV/NCPAP SCORE 1 MIN: 5 Heart Rate 5 min: >100 bpm Resp Effort 5 min: Good Cry Reflex Irritability 5 min: Grimace Muscle Tone 5 min: Flaccid Color 5 min: Body [place], Extremities Blue Resuscitation Effort 5 min: Tactile Stimulation SCORE 5 MIN: 6 Heart Rate 10 min: >100 bpm Resp Effort 10 min: Good Cry Reflex Irritability 10 min: Cough or Sneeze or Pulls Away Muscle Tone 10 min: Some Flexion of Extremities Color 10 min: Body [place], Extremities Blue Resuscitation Effort 10 min: Tactile Stimulation SCORE 10 MIN: 8 INFORMATION BABY A Gestational Age at Delivery: 35.1 Gestational Status: Late - 34- 36.6 Weeks Outcome : Liveborn Infant Condition : Fair Sex: Male IDENTIFICATION BABY A Verification Date/Time: 03/04/2017 06:25 ID Band Number: [id number] Mother's Name Verified: Yes RN Verifying Infant: K. Blaze, RN Additional Verifying Personnel: Harpreet Ramires, RN WEIGHT/LENGTH BABY A Birthweight (gm): 2520 Infant Weight (lb): 5 Weight (oz): 9 Infant Length (in): 18.00 Length (cm): 45.72 CORD INFORMATION BABY A No. Cord Vessels: 3 Nuchal Cord : x1, Loose Cord Blood Taken: Yes-For Eval (Mom's Blood Type - or O+) Infant Suction: Mouth; Nose ASSESSMENT BABY A Infant Complications: Other Infant Complications- Other: difficult to trace tracing due to maternal habitus, patient also on Magnesium Sulfate and received Ambien Physical Findings at Delivery: Within Normal Limits Skin to Skin: No (Annotations: Data stored by N on behalf of user) Aoc Operations Intelligence Officer/ALS Called : Yes Infant Care By: MARGARETTE Rivera Transferred To: NICU SIGNATURES Signature: with User ID: [email or web address]
[2017-03-04] MEDS: MAGNESIUM SULFATE 500 ML IV PRN (08:15)
[2017-03-04] MEDS ORDERED: PENICILLIN G-K 5 MILLION UNIT VIAL IV SCH (10:00)
[2017-03-04] MEDS ORDERED: LABETALOL HCL 200 MG TABLET PO SCH (10:00)
[2017-03-04] MEDS ORDERED: FAMOTIDINE 20 MG TABLET PO SCH (10:00)
[2017-03-04] MEDS: SENNOSIDES/DOCUSATE 8.6-50 MG 1 EACH TABLET PO SCH (11:09)
[2017-03-04] MEDS ORDERED: SENNOSIDES/DOCUSATE 8.6-50 MG 1 EACH TABLET ONE (11:09)
[2017-03-04] MEDS ORDERED: PRENATAL VITAMIN W-O CA NO5/FE FUMARATE/FA CAPSULE ONE (11:09)
[2017-03-04] MEDS ORDERED: SERTRALINE HCL 50 MG TABLET ONE (11:09)
[2017-03-04] MEDS: SERTRALINE HCL 50 MG TABLET PO SCH (11:10)
[2017-03-04] MEDS ORDERED: DOCUSATE SODIUM 100 MG CAPSULE ONE (11:10)
[2017-03-04] MEDS: PRENATAL VITAMIN W-O CA NO5/FE FUMARATE/FA CAPSULE PO SCH (11:10)
[2017-03-04] MEDS ORDERED: FERROUS SULFATE 325 MG TABLET PO ONE (11:10)
[2017-03-04] MEDS ORDERED: FAMOTIDINE 20 MG TABLET ONE (11:10)
[2017-03-04] MEDS: FERROUS SULFATE 325 MG TABLET PO SCH ×2 (11:10→21:10)
[2017-03-04] MEDS: DOCUSATE SODIUM 100 MG CAPSULE PO SCH ×2 (11:11→21:10)
[2017-03-04] MEDS: RINGERS SOLUTION,LACTATED 1,000 ML IV PRN (13:49)
[2017-03-04] MEDS: IBUPROFEN 800 MG TABLET PO SCH ×2 (15:45→21:21)
[2017-03-04] MEDS ORDERED: IBUPROFEN 800 MG TABLET ONE (15:46)
--- NOTE | 2017-03-04 19:54 | Admission Physical ---
Datetime Report Generated by CPN: 03/04/2017 19:54 CURRENT ADMISSION Chief Complaint: Other Chief Complaint: Other Chief Complaint Other: elevated blood pressures Chief Complaint Other: elevated blood pressure in the office. Indication for Induction: Not Applicable Admit Impression- Other: preeclampsia Admit Impression- Other: evaluate for preeclampsia Admit Plan: Observation/Evaluation Admit Plan: Admit to Unit; Observation/Evaluation ALLERGIES Medication Allergies: No Medication Allergies: No Known Allergies (03/04/2017) Medication Allergies: No Known Allergies (03/01/2017) Medication Allergies: No Known Allergies (01/10/2017) OBSTETRICAL HISTORY EDC: 04/07/2017 00:00 : 1 Para: 0 Term: 0 : 0 SAB: 0 IAB: 0 Ectopic: 0 Livin Cesareans: 0 VBACs: 0 Multiple Births: 0 Gestational Diabetes: No Rh Sensitization: No Incompetent Cervix: No ZEENAT: No Infertility: No ART Treatment: No Uterine Anomaly: No IUGR: No Hx Previous C/S: No Macrosomia: No Hx Loss/Stillborn: No PIH: Yes Hx : No Placenta Previa/Abruption: No Depression/PP Depression: Yes PTL/PROM: No Post Hemorrhage: No Current Procedures: Ultrasound Obstetrical History Comments: g1- current , preeclampsia at 35 weeks IOL on Magnesium SEE RECORDS Alcohol: No Marijuana : No Cocaine: No Other Illicit Drugs: No Cigarettes: Never Smoker. 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 Surgery: No Heart Disease: No Hosp/Surgery: No Autoimmune Disorder: No Anesthetic Complications: No Kidney Disease: No Abnormal Pap Smear: No Neuro/Epilepsy: No Psychiatric Disorders: No Other Medical Diseases: No Hepatitis/Liver Disease: No Significant Family History: No Varicosities/Phlebitis: No Trauma/Violence : No Thyroid Dysfunction: No Medical History Comments: anxiety and depression, obesity INFECTIOUS HISTORY Gonorrhea: No Genital Herpes: No Chlamydia: No Tuberculosis: No Syphilis: No Hepatitis: No HIV/AIDS Exposure: No Rash or Viral Illness: No HPV: No PHYSICAL EXAM General: Normal General: Normal HEENT: Normal HEENT: Normal Neurologic: Normal Neurologic: Normal Thyroid: Normal Thyroid: Normal Heart: Normal Heart: Normal Lungs: Normal Lungs: Normal Breast: Deferred Breast: Deferred Back: Normal Back: Normal Abdomen: Normal Abdomen: Normal Genitourinary Exam: Deferred Genitourinary Exam: Deferred Extremities: Normal Extremities: Normal DTRs: Normal DTRs: Normal Pelvic Type: Adequate Pelvic Type: Adequate Vital Signs: Reviewed Vital Signs: Reviewed FETUS A EGA: 34.5 EGA: 34.1 Monitoring: External US FHR- Baseline: 130 Variability: Moderate 6-25bpm Accelerations: 10X10 Decelerations: None FHR Category: Category I Admit Comment: Her preeclampsia labs look normal. Plan to observe. With mild features plan delivery at 37 weeks. If she would develop severe features deliver sooner. Admit Comment: Will admit for a 24 hour urine protein and serial blood pressures. PLANS FOR LABOR AND DELIVERY Labor and Delivery: None Pain Management: Epidural Feeding Preference: Breast Benefit of Breast Feed Discussed: Yes Circumcision: Yes INFORMED CONSENT Signature: with User ID: Austin Signature: with User ID: [email or web address] : with User ID: Austin
[2017-03-04] MEDS: LABETALOL HCL 200 MG TABLET PO SCH (21:10)
[2017-03-05] MEDS: IBUPROFEN 800 MG TABLET PO SCH ×3 (05:52→21:41)
[2017-03-05] MEDS: LABETALOL HCL 200 MG TABLET PO SCH ×2 (05:52→18:22)
[2017-03-05 06:40] LABS: HEMOGLOBIN 11.7 g/dL (12.0-15.5); HGB HCT DIFFERENCE 0.1; MEAN CORPUSCULAR HEMOGLOBIN 30.5 pg (27.0-33.4); MEAN CORPUSCULAR HGB CONC 33.3 g/dL (32.0-36.0); MEAN CORPUSCULAR VOLUME 91 fl (80-97); RED BLOOD COUNT 3.83 10^6/uL (3.72-5.28); WHITE BLOOD COUNT 11.6 10^3/uL (4.0-10.5)
[2017-03-05 07:09] LABS: ALANINE AMINOTRANSFERASE 21 U/L (5-35); ALBUMIN 2.6 g/dL (3.7-5.6); ALKALINE PHOSPHATASE 113 U/L (50-135); ANION GAP 7 (5-19); ASPARTATE AMINO TRANSFERASE 17 U/L (5-30); BILIRUBIN,DIRECT 0.3 mg/dL (0.0-0.4); BILIRUBIN,TOTAL 0.4 mg/dL (0.2-1.3); BLOOD UREA NITROGEN 15 mg/dL (7-20); CALCIUM 8.5 mg/dL (8.4-10.2); CARBON DIOXIDE 23 mmol/L (22-30); CHLORIDE 108 mmol/L (98-107); CREATININE RESULT 1.05 mg/dL (0.52-1.25); GLUCOSE 70 mg/dL (75-110); LDH 566 U/L (340-670); POTASSIUM 4.3 mmol/L (3.6-5.0); SODIUM 138.1 mmol/L (137-145); TOTAL PROTEIN 5.1 g/dL (6.3-8.2); URIC ACID 6.4 mg/dL (2.5-6.2)
--- NOTE | 2017-03-05 09:55 | PDOC PROGRESS REPORT ---
Subjective-OB Subjective: Post Delivery Day: 21 year old. Denies any needs at this time Physical Exam (OB) Vital Signs: Temp Pulse Resp BP Pulse Ox 97.5 F 77 18 127/78 H 100 03/05/17 07:31 03/05/17 07:31 03/05/17 07:31 03/05/17 07:31 03/05/17 07:31 Intake & Output 03/04/17 03/05/17 03/06/17 06:59 06:59 06:59 Intake Total 900 240 Output Total 700 Balance 200 240 Weight 124.6 kg - PIH/Pre-Eclampsia DTR's: 2 + Clonus: Negative Headache: Absent Epigastric Pain: No Visual Changes: No - Lochia Lochia Amount: Small 10-25 ml Lochia Color: Rubra/Red - Abdomen Description: Soft, Round Hernia Present: No Bowel Sounds: Normoactive Flatus Presence: Present Stool: No Fundal Description: Firm, Midline Fundal Height: u/u - u/2 Objective-Diagnostic Laboratory: 03/05/17 06:02 03/05/17 06:02 03/05/17 03/05/17 06:02 06:02 WBC 11.6 H RBC 3.83 Hgb 11.7 L Hct 35.0 L MCV 91 MCH 30.5 MCHC 33.3 RDW 13.0 Plt Count 198 Sodium 138.1 Potassium 4.3 Chloride 108 H Carbon Dioxide 23 Anion Gap 7 BUN 15 Creatinine 1.05 Est GFR ( Amer) > 60 Est GFR (Non-Af Amer) > 60 Glucose 70 L Uric Acid 6.4 H Calcium 8.5 Total Bilirubin 0.4 AST 17 ALT 21 Alkaline Phosphatase 113 Total Protein 5.1 L Albumin 2.6 L
[2017-03-05] MEDS: PRENATAL VITAMIN W-O CA NO5/FE FUMARATE/FA CAPSULE PO SCH (09:59)
[2017-03-05] MEDS: SERTRALINE HCL 50 MG TABLET PO SCH (10:00)
[2017-03-05] MEDS: SENNOSIDES/DOCUSATE 8.6-50 MG 1 EACH TABLET PO SCH (10:00)
[2017-03-05] MEDS: DOCUSATE SODIUM 100 MG CAPSULE PO SCH ×2 (10:00→18:22)
[2017-03-05] MEDS: FERROUS SULFATE 325 MG TABLET PO SCH ×2 (10:00→18:22)
[2017-03-05] MEDS: FAMOTIDINE 20 MG TABLET PO SCH ×2 (10:01→21:41)
[2017-03-06] MEDS: IBUPROFEN 800 MG TABLET PO SCH ×2 (06:07→14:56)
[2017-03-06] MEDS: LABETALOL HCL 200 MG TABLET PO SCH ×2 (06:07→17:34)
[2017-03-06 07:09] LABS: HEMATOCRIT 30.5 % (36.0-47.0); HEMOGLOBIN 10.7 g/dL (12.0-15.5); HGB HCT DIFFERENCE 1.6; MEAN CORPUSCULAR HEMOGLOBIN 31.4 pg (27.0-33.4); MEAN CORPUSCULAR VOLUME 90 fl (80-97); RED CELL DISTRIBUTION WIDTH 12.9 % (11.5-14.0)
[2017-03-06 07:29] LABS: ALANINE AMINOTRANSFERASE 25 U/L (5-35); ALBUMIN 2.4 g/dL (3.7-5.6); ALKALINE PHOSPHATASE 95 U/L (50-135); ANION GAP 5 (5-19); ASPARTATE AMINO TRANSFERASE 14 U/L (5-30); BILIRUBIN,DIRECT 0.2 mg/dL (0.0-0.4); BILIRUBIN,TOTAL 0.2 mg/dL (0.2-1.3); BLOOD UREA NITROGEN 15 mg/dL (7-20); CALCIUM 8.9 mg/dL (8.4-10.2); CARBON DIOXIDE 24 mmol/L (22-30); CHLORIDE 111 mmol/L (98-107); GLUCOSE 81 mg/dL (75-110); LDH 452 U/L (340-670); POTASSIUM 4.3 mmol/L (3.6-5.0); SODIUM 140.3 mmol/L (137-145); TOTAL PROTEIN 4.6 g/dL (6.3-8.2); URIC ACID 6.3 mg/dL (2.5-6.2)
--- NOTE | 2017-03-06 09:13 | PDOC PROGRESS REPORT ---
Subjective-OB Subjective: Post Delivery Day: 21 year old. Denies any needs at this time. Ready for discharge. Physical Exam (OB) Vital Signs: Temp Pulse Resp BP Pulse Ox 97.5 F 84 17 139/88 H 99 03/06/17 08:44 03/06/17 08:44 03/06/17 08:44 03/06/17 08:44 03/06/17 08:44 Intake & Output 03/05/17 03/06/17 03/07/17 06:59 06:59 06:59 Intake Total 240 Balance 240 Weight 124.6 kg 120 kg - PIH/Pre-Eclampsia DTR's: 3 + Clonus: Negative Headache: Absent Epigastric Pain: No Visual Changes: No - Lochia Lochia Amount: Small 10-25 ml Lochia Color: Rubra/Red - Abdomen Description: Soft, Round Hernia Present: No Bowel Sounds: Normoactive Flatus Presence: Present Stool: No Fundal Description: Firm, Midline Fundal Height: u/u - u/2 Objective-Diagnostic Laboratory: 03/06/17 06:57 03/06/17 06:57 03/06/17 03/06/17 06:57 06:57 WBC 9.0 RBC 3.40 L Hgb 10.7 L Hct 30.5 L MCV 90 MCH 31.4 MCHC 35.0 RDW 12.9 Plt Count 186 Sodium 140.3 Potassium 4.3 Chloride 111 H Carbon Dioxide 24 Anion Gap 5 BUN 15 Creatinine 0.90 Est GFR ( Amer) > 60 Est GFR (Non-Af Amer) > 60 Glucose 81 Uric Acid 6.3 H Calcium 8.9 Total Bilirubin 0.2 AST 14 ALT 25 Alkaline Phosphatase 95 Total Protein 4.6 L Albumin 2.4 L
--- NOTE | 2017-03-06 09:21 | PDOC DISCHARGE SUMMARY ---
Final Diagnosis Discharge Date: 03/06/17 - Final Diagnosis (1) Anxiety and depression Is this a current diagnosis for this admission?: Yes (2) Delivery normal Is this a current diagnosis for this admission?: Yes (3) Obesity Is this a current diagnosis for this admission?: Yes (4) Is this a current diagnosis for this admission?: Yes (5) Mild pre-eclampsia Is this a current diagnosis for this admission?: Yes Discharge Data - Discharge Medication Home Medications: Sertraline HCl [Zoloft 50 mg Tablet] 50 mg PO DAILY 03/01/17 Docusate Sodium [Colace 100 mg Capsule] 100 mg PO BID #30 capsule 03/06/17 Ferrous Sulfate [Feosol 325 mg Tablet] 325 mg PO DAILY #30 tablet 03/06/17 Labetalol HCl [Normodyne 200 mg Tablet] 200 mg PO Q12A #60 tablet 03/06/17 Gestational Age: 35.1 wks Reason(s) for Admission: Induction of Labor Admission Note: Preeclampsia Procedures: Ultrasound Intrapartum Procedure(s): Spontaneous Vaginal Delivery Complication(s): Laceration-Perineal Laceration-Degree: 1st - [place] Data Baby 1 Male at 1 minute: 5 at 5 minutes: 6 at 10 minutes: 8 Weight: 2.523 kg Home with Mother: No Complications: Yes - Prematurity - Diagnosis Test Laboratory: Temp Pulse Resp BP Pulse Ox 97.5 F 84 17 139/88 H 99 03/06/17 08:44 03/06/17 08:44 03/06/17 08:44 03/06/17 08:44 03/06/17 08:44 03/01/17 03/01/17 03/03/17 10:18 10:50 06:17 RBC 4.40 4.14 Hgb 13.4 12.8 Hct 39.2 36.7 Urine Opiates Screen NEGATIVE 03/03/17 03/04/17 03/05/17 21:50 06:33 06:02 RBC 4.27 4.41 3.83 Hgb 13.1 13.5 11.7 L Hct 37.7 39.3 35.0 L Urine Opiates Screen 03/06/17 06:57 RBC 3.40 L Hgb 10.7 L Hct 30.5 L Urine Opiates Screen - Discharge information/Instructions Discharge Activity: Activity As Tolerated, Balance Activity w/Rest, Pelvic Rest , Slowly Increase Activity, No tub bath Discharge Diet: Regular Disposition: HOME, SELF-CARE Follow up with: [facility] in: 1, Weeks
[2017-03-06] MEDS: SERTRALINE HCL 50 MG TABLET PO SCH (11:42)
[2017-03-06] MEDS: DOCUSATE SODIUM 100 MG CAPSULE PO SCH ×2 (11:42→17:33)
[2017-03-06] MEDS: SENNOSIDES/DOCUSATE 8.6-50 MG 1 EACH TABLET PO SCH (11:42)
[2017-03-06] MEDS: FERROUS SULFATE 325 MG TABLET PO SCH ×2 (11:42→17:34)
[2017-03-06] MEDS: PRENATAL VITAMIN W-O CA NO5/FE FUMARATE/FA CAPSULE PO SCH (11:42)
[2017-03-06] MEDS: FAMOTIDINE 20 MG TABLET PO SCH (11:43)
[2017-03-06 15:27] VITALS: BP 138/80
== END 2017-03-06 18:00 | disposition home or self-care (01) | DRG 775 ==
LOC: LC 10:12 → LR 13:54 → 2S 16:23 → LR 03-03 21:05 → OBSVTOIN 03-04 15:27 → 2S 03-04 19:52
PROVIDERS: ADMIT Obstetrics & Gynecology; ATTEND Obstetrics & Gynecology
PROC: 10E0XZZ Delivery of Products of Conception, External Approach (ICD-10-PCS; principal; 2017-03-04)
PROC: 0HQ9XZZ Repair Perineum Skin, External Approach (ICD-10-PCS; 2017-03-04)
PROC: 4A1HXCZ Monitoring of Products of Conception, Cardiac Rate, External Approach (ICD-10-PCS; 2017-03-04)
PROC: 3E0P7GC Introduction of Other Therapeutic Substance into Female Reproductive, Via Natural or Artificial Opening (ICD-10-PCS; 2017-03-04)
PROC: 10907ZC Drainage of Amniotic Fluid, Therapeutic from Products of Conception, Via Natural or Artificial Opening (ICD-10-PCS; 2017-03-04)
PROC: 3E0234Z Introduction of Serum, Toxoid and Vaccine into Muscle, Percutaneous Approach (ICD-10-PCS; 2017-03-06)
PROC: 3E0234Z Introduction of Serum, Toxoid and Vaccine into Muscle, Percutaneous Approach (ICD-10-PCS; 2017-03-06)
DX: O14.04 Mild to moderate pre-eclampsia, complicating childbirth (principal); Z68.41 Body mass index [BMI] 40.0-44.9, adult; Z3A.35 35 weeks gestation of pregnancy; Z37.0 Single live birth; O70.0 First degree perineal laceration during delivery; O62.3 Precipitate labor; O99.214 Obesity complicating childbirth; E66.9 Obesity, unspecified; Z23 Encounter for immunization
CPT/HCPCS: 36415; 59025; 80053; 80307; 81001; 82570; 83615; 84156; 84550; 85025; 85027; 86850; 86900; 86901; 90707; 90715; G0378; G0379; J0360; J2405; J2540; J2590; J3475; J3490

== ENCOUNTER 2020-02-14 20:58 | Emergency (ER) | payer MEDICAID ==
[2020-02-14] MEDS ORDERED: MAGNESIUM CITRATE 296 ML BOTTLE PO ONE (22:50)
--- NOTE | 2020-02-14 23:02 | ER Document Report ---
Entered by FRANCO NEGRO SCRIBE 02/14/20 2243 Acting as scribe for:KELLEY REAL IV, MD ED GI/ - General Chief Complaint: Abdominal Pain Stated Complaint: CONSTIPATION Time Seen by Provider: 02/14/20 22:39 Primary Care Provider: NADIRA ANDERSON NP [Primary Care Provider] - Follow up as needed Mode of Arrival: Ambulatory Information source: Patient Notes: This 24 year old female patient presents to the ED today with complaints of lower abdominal pain and constipation for the past x5 days. Patient states that she tried a saline enema at 1600 today without resolve. She also reports using Miralax, sims syrup with milk, fiber gummies, [place] food, and coffee for the past x3 days to try to resolve her symptoms without success. She notes that she takes phentramine, but denies any narcotic medication use. Denies fever, nausea, or vomiting. TRAVEL OUTSIDE OF THE [place] IN LAST 30 DAYS: No - Related Data Allergies/Adverse Reactions: No Known Allergies Allergy (Verified 02/14/20 21:54) Past Medical History - General Information source: [facility] - Social History Smoking Status: Never Smoker Cigarette use (# per day): No Chew tobacco use (# tins/day): No Smoking Education Provided: No Frequency of alcohol use: None Drug Abuse: None Family History: Reviewed & Not Pertinent, Arthritis, CAD, CVA, DM, Hyperlipidemia, Hypertension, Malignancy Patient has suicidal ideation: No Patient has homicidal ideation: No - Immunizations Immunizations up to date: Yes Hx Diphtheria, Pertussis, Tetanus Vaccination: Yes Review of Systems - Review of Systems Constitutional: See HPI. denies: Fever EENT: No symptoms reported Cardiovascular: No symptoms reported Respiratory: No symptoms reported Gastrointestinal: See HPI, Abdominal pain, Constipation. denies: Nausea, Vomiting Genitourinary: No symptoms reported Female Genitourinary: No symptoms reported Musculoskeletal: No symptoms reported Skin: No symptoms reported Hematologic/Lymphatic: No symptoms reported Neurological/Psychological: No symptoms reported -: Yes All other systems reviewed and negative Physical Exam - Vital signs Vitals: Temp Pulse Resp BP Pulse Ox 98.4 F 99 13 134/88 H 99 02/14/20 21:04 02/14/20 21:04 02/14/20 21:04 02/14/20 21:04 02/14/20 21:04 Interpretation: Normal - General General appearance: Alert In distress: None - HEENT Head: Normocephalic, Atraumatic Eyes: Normal Pupils: PERRL - Respiratory Respiratory status: No respiratory distress Chest status: Nontender Breath sounds: Normal Chest palpation: Normal - Cardiovascular Rhythm: Regular Heart sounds: Normal auscultation Murmur: No Friction rub: No Gallop: None auscultated - Abdominal Inspection: Normal Distension: No distension Bowel sounds: Normal Tenderness: Nontender - Abdomen soft Organomegaly: No organomegaly - Back Back: Normal, Nontender - Extremities General upper extremity: Normal inspection General lower extremity: Normal inspection - Neurological Neuro grossly intact: Yes Orientation: AAOx4 - Psychological Associated symptoms: Normal affect, Normal mood - Skin Skin Temperature: Warm Skin Moisture: Dry Skin Color: Normal Course - Re-evaluation Re-evalutation: 02/15/20 01:13 Patient was able to have a bowel movement after magnesium citrate and soapsuds enema administration. Patient states she feels better and is ready to be discharged home. All questions were answered prior to discharge. Emergency signs and symptoms, reasons to return to the emergency department discussed with patient. - Vital Signs Vital signs: Temp Pulse Resp BP Pulse Ox 98.4 F 99 13 134/88 H 99 02/14/20 21:55 02/14/20 21:04 02/14/20 21:04 02/14/20 21:04 02/14/20 21:04 Discharge - Discharge Clinical Impression: Constipation Qualifiers: Constipation type: unspecified constipation type Qualified Code(s): K59.00 - Constipation, unspecified Condition: Good Disposition: HOME, SELF-CARE Instructions: Constipation (OM) Additional Instructions: Return to the Emergency Department without delay if any worse. HOME CARE INSTRUCTIONS & INFORMATION: Thank you for choosing us for your medical needs. We hope you're satisfied with the care you received. After you leave, you must properly care for your problem and, at the same time, observe its progress. Any condition can change. Some illnesses can change rapidly over hours or days. If your condition worsens, return to the Emergency Department or see your physician promptly. ABOUT YOUR X-RAYS AND EKG'S: If you had an EKG or X-rays taken, they have been read by the Emergency Physician. The X-rays and EKG's will also be read by a Radiologist or Port Traffic Manager within 24 hours. If discrepancies are noted, you will be notified by telephone. Please be certain the ED has a correct telephone number & address where you can be reached. Also, realize that some fractures or abnormalities do not show up on initial X-rays. If your symptoms continue, see your physician. ABOUT YOUR LABORATORY TEST: If you had laboratory tests, the results have been reviewed by the Emergency Physician. Some test results (for example cultures) may not be available for several days. You will be contacted if any test result shows you need additional treatment. Please be certain the ED has a correct telephone number and address where you can be reached. ABOUT YOUR MEDICATIONS: You will receive instructions on how to take your medicine on the prescription label you receive. Additional information may be provided by the Pharmacy. If you have questions afterwards, call the ED for clarification or further instructions. Some prescribed medications may cause drowsiness. Do not perform tasks such as driving a car or operating machinery w ithout consulting your Pharmacist. If you feel you need a refill of pain medication, your condition will need re-evaluation. Please do not call for a refill of any medication. ABOUT YOUR SIGNATURE: Signature of this document acknowledges to followin. Understanding that you received emergency treatment and that you may be released before al medical problems are known or treated. Please be certain the ED has a correct phone number & address where you can be reached. 2. Acknowledgement that you will arrange for follow-up care as recommended. 3. Authorization for the Emergency Physician to provide information to your follow-up Physician in order to maximize your care. AT ANY TIME, IF YOUR SYMPTOMS CHANGE SIGNIFICANTLY OR WORSEN OR YOU DEVELOP NEW SYMPTOMS, RETURN TO THE EMERGENCY DEPARTMENT IMMEDIATELY FOR RE-EVALUATION. OUR GOAL IS TO PROVIDE EXCELLENT MEDICAL CARE! WE HOPE THAT WE HAVE MET YOUR EXPECTATIONS DURING YOUR EMERGENCY DEPARTMENT VISIT AND THAT YOU FEEL YOU HAVE RECEIVED EXCELLENT CARE! Referrals: NADIRA ANDERSON CERTIFIED DIETARY MANAGER [Primary Care Provider] - Follow up as needed I personally performed the services described in the documentation, reviewed and edited the documentation which was dictated to the scribe in my presence, and it accurately records my words and actions.
[2020-02-15 01:25] VITALS: BP 126/81
== END 2020-02-15 01:25 | disposition home or self-care (01) ==
LOC: ER 20:58
DX: K59.00 Constipation, unspecified (principal); R10.30 Lower abdominal pain, unspecified; Z79.899 Other long term (current) drug therapy
CPT/HCPCS: 99283; J3490